=== PATIENT | female | born 1960 | race Caucasian/White ===

== ENCOUNTER 2017-11-20 05:59 | Inpatient (IN) | payer BC ==
[2017-11-20] VITALS (17 sets, daily range): BP systolic 96–179; BP diastolic 57–113; BMI 21.0
[~2017-11-20] VITALS: Ht 167.6 cm; Wt 50.9 kg
--- NOTE | ~2017-11-20 | OP ---
PATIENT NAME: KARLY BETANCOURT MEDICAL RECORD: [id number] :62 LOCATION:D.MS Achary[facility]220[facility]ene ADMISSION DATE:11/20/17 SURGEON: TY ORELLAAN MD DATE OF OPERATION: 11/22/2017 PREOPERATIVE DIAGNOSIS: Aspiration pneumonia. POSTOPERATIVE DIAGNOSIS: Aspiration pneumonia. PROCEDURES: 1. Esophagogastroduodenoscopy with antral biopsies. 2. Percutaneous endoscopic gastrostomy, 20-Uzbek. SURGEON: Ty Orellana MD DIAGNOSTIC SALES SPECIALIST: None. BLOOD LOSS: Minimal. ANESTHESIA: IV sedation per the anesthesia staff with local. COMPLICATIONS: None. The risks, possible complications and alternatives to the procedure were explained. A consent form was signed. OPERATIVE COURSE: The patient was seen in her ICU bed. A bite block was inserted. IV sedation was induced by the anesthesia staff. The abdomen was sterilely prepped and draped. A gastroscope was inserted through the biteblock into the mouth. It was advanced easily into the hypopharynx. The esophagus was easily intubated as were the stomach and duodenum. Upon withdrawal, retroflexed and angulus views were obtained. Antral biopsies were obtained. I then indented the anterior abdominal wall skin. I chose an area for insertion of the gastrostomy tube at the side of the former gastrostomy tube insertion site. This area was infiltrated with a local anesthetic and then a skin incision was accomplished. Through the skin incision, I advanced an Angiocath and punctured the fundus of the stomach on the first try. A guidewire was advanced through the Angiocath. This was grasped with an endoscopic snare and was withdrawn out through the mouth. I then attached it to a pull type gastrostomy tube, which was then pulled into place. Hub and flange devices were attached. I re-endoscoped in the patient's esophagus and stomach. There had been no evidence of false passage or perforation. The endoscope was then withdrawn under direct vision. Sterile dressings were applied. TRANSINT:[id number] Voice Confirmation ID: [id number] DOCUMENT ID: [id number] OPERATIVE REPORT [id number] KARLY BETANCOURT ROBERT MD at 1158 CC: [id number] DICTATION DATE: 11/22/17 1549 TRAFFIC SIGNAL MECHANIC: 11/22/172006 DIS IN 12/01/17 [facility] [address] [place] [place] [address]
--- NOTE | ~2017-11-20 | EC ---
PATIENT:KARLY BETANCOURT DATE OF SERVICE: 11/20/17 SEX: F MEDICAL RECORD: [id number] DATE OF : 62 LOCATION:D.MS Acharya220 AGE OF PATIENT: 57 ADMISSION DATE: 11/20/17 REFERRING PHYSICIAN: INTERPRETING PHYSICIAN: DAWSON ENAMORADO MD ECHOCARDIOGRAM REPORT ECHO CHARGES 4 ECHO COMPLETE Date: 11/20 CLINICAL DIAGNOSIS: CHF ECHOCARDIOGRAPHIC MEASUREMENTS (adult normal given) AC root (d.<3.7cm) 2.9 cm LV Septum d (<1.2 cm> 1.3 cm Valve Excursion 1.1 cm LV Septum (systole) 1.4 cm Left Atria (s.<4.0cm> 3.8 cm LVPW d(<1.2cm) 1.5 cm RV (d.<2.3cm) 3.5 cm LVPW (sytole) 1.7 cm LV diastole(<5.6CM) 4.1 cm MV E-F(>70mm/sec) cm LV systole 2.4 cm LVOT Diameter 1.7 cm MV exc.(>10mm) cm Est.ejection fraction (50-75%) % DOPPLER: LVIT cm/sec A 115 cm/sec E 88.0 cm/sec LA cm/sec RVSP 27 mmHg LVOT 149 cm/sec AOP1/2T m/s Asc. Ao 185 cm/sec RVOT cm/sec RA cm/sec PA cm/sec AV Gradient Peak 13.74mmHg AV Mean 7.77 mmHg AV Area 1.9 cm MV Gradient Peak 3.82 mmHg MV Mean 1.72 mmHg MV Area cm COMMENTS: Escrow Officer: Jana GUERRERO Male Model: 1 Dr. Enamorado TAPE# PACS Pericardial Effusion N DATE OF SERVICE: Echocardiogram FINDINGS: 1. Left ventricular chamber size is within normal limits. Left ventricular systolic function is normal. Overall ejection fraction estimated at 65%. 2. Left atrium, right atrium, and right ventricular chamber sizes are within normal limits. 3. Valvular structures have normal structure and motion. ECHOCARDIOGRAM REPORT [id number] KARLY BETANCOURT 4. Doppler interrogation only reveals mild tricuspid regurgitation, no other valvular insufficiency or stenosis and pulmonary systolic pressure is normal at 27 mmHg. 5. No evidence of pericardial effusion or left ventricular thrombus. TRANSINT:[id number] Voice Confirmation ID: [id number] DOCUMENT ID: [id number] DAWSON ENAMORADO MD at 0956 CC: [id number] DICTATION DATE: 11/21/17 1055 ACCOUNTANT CONTROLLER: 11/21/17 1509 ADM IN [place] [id number] [place] [id number]
--- NOTE | ~2017-11-20 | CN ---
PATIENT NAME:KARLY BETANCOURT MEDICAL RECORD: [id number] : 62 LOCATION:D.MS [place] ADMIT DATE: 11/20/17 ACCOUNT: [id number] CONSULTING PHYSICIAN: HANNAH ORELLANA MD REFERRING PHYSICIAN: KIMBERLY LICONA MD DATE OF CONSULTATION: 11/21/2017 ADDENDUM CHIEF COMPLAINT: Aspiration pneumonia and needed gastrostomy tube. HISTORY OF PRESENT ILLNESS: I was asked to see this patient to place a gastrostomy tube. She has had a G-tube in the past. There is a scar on her abdomen in the left upper quadrant. The patient had an aspiration pneumonia. She has been aspirating and has undergone a swallowing evaluation in the past. Nothing aggravates. Nothing alleviates. The patient is unable to provide me with any history due to her mental status. This is a consultation note addendum. For the typed portion of the consult note, please see the chart. This would include the past medical and surgical history, current medications, allergies, social history as well as family history. REVIEW OF SYSTEMS: Unobtainable from the patient as she is currently nonverbal. PHYSICAL EXAMINATION: GENERAL: The patient appears acutely ill. Also appears chronically ill. VITAL SIGNS: Stable. The entire physical examination was performed in the presence of a female nurse. EARS: External ears appear normal. EYES: Pupils are reactive. NECK: Trachea is midline. CHEST: Intercostal retractions are present. Breathing is labored. PULMONARY: Rhonchi bilaterally. ABDOMEN: Nontender. There is a left upper quadrant scar. PSYCHIATRIC: Unable to evaluate. NEUROLOGIC: Markedly abnormal. BACK: Thoracic kyphosis is present. LYMPHATIC: No lymphangitic streaking of the exposed extremities. IMPRESSION: Aspiration pneumonia. PLAN: EGD with PEG placement. I will hold the Lovenox. TRANSINT:[id number] Voice Confirmation ID: [id number] DOCUMENT ID: [id number] HANNAH ORELLANA MD at 1158 CC: KIMBERLY LICONA MD [id number] DICTATION DATE: 11/21/17 165 SAMPLE GRADER: 11/21/172117 DIS IN 12/01/17 [place] [id number] [place] [address]
--- NOTE | ~2017-11-20 | CN ---
PATIENT NAME:KARLY BETANCOURT MEDICAL RECORD: [id number] : 62 LOCATION:CLAYD.2308 ADMIT DATE: 11/20/17 ACCOUNT: [id number] CONSULTING PHYSICIAN: MELONY MICHELLE MD REFERRING PHYSICIAN: KIMBERLY LICONA MD DATE OF CONSULTATION: 11/22/2017 IDENTIFYING DATA: The patient is a 57-year-old and she is admitted to the hospital secondary to aspiration pneumonia and recent ventilator placement. HISTORY OF PRESENT ILLNESS: In actuality, she has been on a ventilator at [facility] for about a month. She subsequently has had some hypotensive episodes and some confusion. She is now having difficulty swallowing and is in intensive care. While there, she has had some behavior outbursts that are problematic. She has a history of chronic mental illness and stressful as the events of the recent weeks would be for anyone. I am sure they are particularly so for her. She will be having a PEG tube placement as I am dictating this. She is aware of that. She is unable to tell me why she is in the hospital or at least she is processing so slowly and looking about the room. I am not sure if she is forgetting what I have said to her or if she is attending to something not present. She subsequently does answer some orientation questions correctly about the year and the date. I was surprised that she was able to do that. PAST PSYCHIATRIC HISTORY: Regarding her past psychiatric history, I have pretty limited information. She gives me the name of doctor at [facility] who I know she has not worked there for 5 years. When asked if she has seen anyone since then or who is prescribing her medications, she cannot tell me anyone except his name. Unfortunately, she has a lithium level of 2.23 on November the , but no level since then. She is taking a pretty low dose of lithium 300 mg daily and she has normal renal functions. ASSESSMENT: 1. Schizoaffective disorder. 2. Delirium associated with intensive care treatment and chronic and long-term critical illness. PLAN: At this time, I would recommend that the patient have another lithium level checked. I think it is important to check it to make sure that it has declined, which I would expect it has and I would also recommend that the lithium subsequently be discontinued. I would give her 500 mg of Depakote twice daily per her PEG tube with a Depakote level in about 5 days and would shoot for a blood level around 75. That may require a little bit of an increase. In addition to this, I would treat her behavioral outburst with p.r.n. Haldol and we would give her a dose of 2 mg by PEG tube IM or IV every 4 hours as needed for agitation. I would also start her on Trilafon at a dose of 2 mg twice daily per the PEG tube on a course scheduled basis. A low dose of a benzodiazepine may help her to be less anxious and to rest better. Naturally supportive medical and surgical and nursing care are going to be important without same. When she does leave here, she should have follow up with [email or web address] Given her condition, I think it is important that she see a psychiatrist. Again, it may well be that her primary care physician is taken over the prescribing of her psychoactive medicines because of the [place] [facility] of her psychiatrist or some level of stability, but I do think she should be seen again at least a few times by the psychiatrist on an outpatient basis prior to being returned to a primary care setting. CONSULT REPORT [id number] KARLY BETANCOURT Thank you for allowing me to participate in the care of this patient. TRANSINT:[id number] Voice Confirmation ID: [id number] DOCUMENT ID: [id number] MELONY MICHELLE MD at 1325 CC: [id number] DICTATION DATE: 11/22/17 1454 LIBRARY SALES CONSULTANT: 11/22/17 1530 ADM IN [place] [id number] [place] [address]
[2017-11-20 06:53] LABS: BASOPHILS 0.3 % (0-2); EOSINOPHILS 2.8 % (0-7); HEMATOCRIT 31.6 % (36.0-48.0); HEMOGLOBIN 10.4 g/dL (12-16); MCH 30.9 pg (26.0-34.0); MCHC 32.9 g/dL (31.0-37.0); MCV 93.8 fL (80.0-100.0); MEAN PLATELET VOLUME 9.2 fL (7.4-10.4); NEUTROPHILS 77.9 % (40-80); PLATELET COUNT 413 10x3/uL (130-400); RBC 3.37 10x6/uL (4.00-5.40); RDW 14.4 % (11.5-14.5); WBC 19.7 10x3/uL (4.8-10.8)
[2017-11-20 07:06] LABS: INR 1.25 (0.85-1.17); PROTIME 15.2 SECONDS (11.6-15.0)
[2017-11-20 07:08] LABS: APTT 34.7 SECONDS (22.8-39.4); D-DIMER-QUANTITATIVE 2.02 ug/mLFEU (0.20-0.54)
[2017-11-20 07:15] LABS: ALBUMIN 2.6 g/dL (3.4-5.0); ALKALINE PHOSPHATASE 155 U/L (46-116); ALT (SGPT) 20 U/L (10-68); BILIRUBIN - TOTAL 0.35 mg/dL (0.2-1.3); CALC OSMOLALITY 263 mosm/kg (275-300); CALCIUM 8.7 mg/dL (8.5-10.1); CARBON DIOXIDE 25.6 mmol/L (21.0-32.0); CHLORIDE - SERUM 98 mmol/L (98-107); CREATININE - SERUM 0.8 mg/dL (0.6-1.3); GLUCOSE 110 mg/dL (74-106); POTASSIUM - SERUM 3.8 mmol/L (3.5-5.1); PROTEIN - SERUM 7.1 g/dL (6.4-8.2); SODIUM 133 mmol/L (136-145); UREA NITROGEN 5 mg/dL (7-18); eGFR NON AFRICAN AMERICAN 78 mL/min (90-120)
[2017-11-20 07:19] LABS: AMYLASE - SERUM 34 U/L (25-115); CKMB 1.7 U/L (0.0-3.6); CREATINE KINASE 122 UL (21-215); LIPASE 53 U/L (73-393); MAGNESIUM - SERUM 1.6 mg/dL (1.8-2.4); PRO BNP 369 pg/mL (0-125); TROPONIN-I < 0.017 ng/mL (0.000-0.060)
[2017-11-20 07:26] LABS: APPEARANCE HAZY (CLEAR); BILIRUBIN NEGATIVE (NEGATIVE); COLOR YELLOW (YELLOW); GLUCOSE NEGATIVE (NEGATIVE); KETONE NEGATIVE (NEGATIVE); NITRITE NEGATIVE (NEGATIVE); PROTEIN TRACE mg/dL (NEGATIVE); SPECIFIC GRAVITY 1.005 (1.005-1.020); UROBILINOGEN NORMAL (NORMAL)
[2017-11-20 07:27] LABS: BACTERIA MANY /hpf (NONE SEEN); EPITHELIAL CELLS 0-5 /hpf (0-5); RED CELLS - URINE 0-5 /hpf (0-5)
[2017-11-20 07:29] LABS: UDS - AMPHET NEGATIVE QUAL (NEGATIVE); UDS - BARB NEGATIVE QUAL (NEGATIVE); UDS - BENZO POSITIVE QUAL (NEGATIVE); UDS - COCAINE NEGATIVE QUAL (NEGATIVE); UDS - OPIATE POSITIVE QUAL (NEGATIVE); UDS - PCP NEGATIVE QUAL (NEGATIVE); UDS - THC NEGATIVE QUAL (NEGATIVE)
[2017-11-20 11:06] LABS: LITHIUM 2.23 mmol/L (0.60-1.20)
[2017-11-20 11:29] LABS: FERRITIN 257 ng/mL (3-244); PRO BNP 426 pg/mL (0-125)
[2017-11-21] VITALS (25 sets, daily range): BP systolic 102–161; BP diastolic 40–99
[2017-11-21 05:36] LABS: HEMATOCRIT 31.2 % (36.0-48.0); HEMOGLOBIN 10.1 g/dL (12-16); MCH 30.6 pg (26.0-34.0); MCHC 32.4 g/dL (31.0-37.0); MCV 94.5 fL (80.0-100.0); MEAN PLATELET VOLUME 9.2 fL (7.4-10.4); PLATELET COUNT 457 10x3/uL (130-400); WBC 32.1 10x3/uL (4.8-10.8)
[2017-11-21 05:45] LABS: CALC OSMOLALITY 282 mosm/kg (275-300); CALCIUM 8.4 mg/dL (8.5-10.1); CARBON DIOXIDE 24.3 mmol/L (21.0-32.0); CHLORIDE - SERUM 107 mmol/L (98-107); CREATININE - SERUM 0.7 mg/dL (0.6-1.3); GLUCOSE 138 mg/dL (74-106); POTASSIUM - SERUM 3.7 mmol/L (3.5-5.1); SODIUM 142 mmol/L (136-145); UREA NITROGEN 6 mg/dL (7-18); eGFR NON AFRICAN AMERICAN > 90 mL/min (90-120)
[2017-11-21 05:58] LABS: LYMPHOCYTES 4 % (15-50); MONOCYTES 2 % (2-11); NEUTROPHILS 88 % (40-80); PLATELET ESTIMATE INCREASED
[2017-11-21] MEDS ORDERED: HYDROCODON-ACE1 EAC7 PO (17:06)
[2017-11-21] MEDS ORDERED: ORAP2 MG PO (17:09)
[2017-11-21] MEDS ORDERED: TOPROL XL50 MG PO (17:09)
[2017-11-21] MEDS ORDERED: NEURONTIN 300300 MG PO (17:10)
[2017-11-21] MEDS ORDERED: NAMENDA10 MG PO (17:11)
[2017-11-21] MEDS ORDERED: THORAZINE50 MG PO (17:12)
[2017-11-21] MEDS ORDERED: BENTYL 20 MG TA20 MG PO (17:13)
[2017-11-21] MEDS ORDERED: PROTONIX40 MG PO (17:14)
[2017-11-21] MEDS ORDERED: LITHOBID 300 M300 MG PO (17:14)
[2017-11-21] MEDS ORDERED: XANAX1 MG PO (17:15)
[2017-11-22] VITALS (25 sets, daily range): BP systolic 106–190; BP diastolic 56–99; Ht 167.6 cm; Wt 50.9 kg
[2017-11-22 03:53] LABS: BASOPHILS 0.1 % (0-2); EOSINOPHILS 0.5 % (0-7); HEMATOCRIT 27.7 % (36.0-48.0); HEMOGLOBIN 8.8 g/dL (12-16); IMMATURE GRANULOCYTES 1.6 % (0-5); LYMPHOCYTES 4.4 % (15-50); MCH 30.6 pg (26.0-34.0); MCHC 31.8 g/dL (31.0-37.0); MCV 96.2 fL (80.0-100.0); MEAN PLATELET VOLUME 9.2 fL (7.4-10.4); MONOCYTES 4.1 % (2-11); NEUTROPHILS 89.3 % (40-80); PLATELET COUNT 380 10x3/uL (130-400); RBC 2.88 10x6/uL (4.00-5.40); RDW 15.4 % (11.5-14.5); WBC 27.7 10x3/uL (4.8-10.8)
[2017-11-22 04:02] LABS: CALC OSMOLALITY 287 mosm/kg (275-300); CALCIUM 8.2 mg/dL (8.5-10.1); CARBON DIOXIDE 24.5 mmol/L (21.0-32.0); CHLORIDE - SERUM 111 mmol/L (98-107); CREATININE - SERUM 0.6 mg/dL (0.6-1.3); GLUCOSE 118 mg/dL (74-106); PHOSPHOROUS 2.1 mg/dL (2.5-4.9); POTASSIUM - SERUM 3.5 mmol/L (3.5-5.1); PRE-ALBUMIN 7.3 mg/dL (18.0-35.7); SODIUM 145 mmol/L (136-145); UREA NITROGEN 7 mg/dL (7-18); eGFR NON AFRICAN AMERICAN > 90 mL/min (90-120)
[2017-11-22 04:05] LABS: ALBUMIN 1.9 g/dL (3.4-5.0)
[2017-11-22 14:17] LABS: FOLATE (FOLIC ACID) - SERUM >20.0 ng/mL (>3.0)
[2017-11-23] VITALS (23 sets, daily range): BP systolic 93–184; BP diastolic 54–99
[2017-11-23 05:19] LABS: BASOPHILS 0.2 % (0-2); EOSINOPHILS 0.6 % (0-7); HEMATOCRIT 29.3 % (36.0-48.0); HEMOGLOBIN 9.4 g/dL (12-16); IMMATURE GRANULOCYTES 2.5 % (0-5); LYMPHOCYTES 9.1 % (15-50); MCHC 32.1 g/dL (31.0-37.0); MCV 96.7 fL (80.0-100.0); MEAN PLATELET VOLUME 9.2 fL (7.4-10.4); MONOCYTES 6.2 % (2-11); NEUTROPHILS 81.4 % (40-80); RBC 3.03 10x6/uL (4.00-5.40); RDW 15.5 % (11.5-14.5)
[2017-11-23 05:21] LABS: PLATELET COUNT 486 10x3/uL (130-400); WBC 17.7 10x3/uL (4.8-10.8)
[2017-11-23 05:34] LABS: AMYLASE - SERUM 42 U/L (25-115); CALCIUM 8.3 mg/dL (8.5-10.1); CARBON DIOXIDE 25.2 mmol/L (21.0-32.0); CHLORIDE - SERUM 112 mmol/L (98-107); CREATININE - SERUM 0.6 mg/dL (0.6-1.3); GLUCOSE 106 mg/dL (74-106); LIPASE 270 U/L (73-393); MAGNESIUM - SERUM 1.7 mg/dL (1.8-2.4); PRO BNP 2671 pg/mL (0-125); SODIUM 144 mmol/L (136-145); THYROID STIMULATING HORMONE 0.46 uIU/mL (0.36-3.74); eGFR NON AFRICAN AMERICAN > 90 mL/min (90-120)
[2017-11-23 05:37] LABS: CALC OSMOLALITY 285 mosm/kg (275-300); POTASSIUM - SERUM 2.9 mmol/L (3.5-5.1); UREA NITROGEN 10 mg/dL (7-18)
[2017-11-24] VITALS (18 sets, daily range): BP systolic 117–172; BP diastolic 68–119
[2017-11-24 05:53] LABS: BASOPHILS 0.5 % (0-2); EOSINOPHILS 2.1 % (0-7); HEMATOCRIT 29.6 % (36.0-48.0); HEMOGLOBIN 9.4 g/dL (12-16); IMMATURE GRANULOCYTES 3.4 % (0-5); LYMPHOCYTES 11.1 % (15-50); MCH 30.2 pg (26.0-34.0); MCHC 31.8 g/dL (31.0-37.0); MCV 95.2 fL (80.0-100.0); MEAN PLATELET VOLUME 9.2 fL (7.4-10.4); MONOCYTES 6.9 % (2-11); PLATELET COUNT 514 10x3/uL (130-400); RBC 3.11 10x6/uL (4.00-5.40); RDW 15.5 % (11.5-14.5)
[2017-11-24 06:02] LABS: WBC 13.2 10x3/uL (4.8-10.8)
[2017-11-24 06:17] LABS: ALBUMIN 1.8 g/dL (3.4-5.0); ALKALINE PHOSPHATASE 111 U/L (46-116); ALT (SGPT) 17 U/L (10-68); CALC OSMOLALITY 288 mosm/kg (275-300); CARBON DIOXIDE 28.2 mmol/L (21.0-32.0); CHLORIDE - SERUM 109 mmol/L (98-107); CREATININE - SERUM 0.6 mg/dL (0.6-1.3); GLUCOSE 121 mg/dL (74-106); MAGNESIUM - SERUM 1.9 mg/dL (1.8-2.4); PHOSPHOROUS 2.6 mg/dL (2.5-4.9); PROTEIN - SERUM 6.2 g/dL (6.4-8.2); SODIUM 145 mmol/L (136-145); UREA NITROGEN 9 mg/dL (7-18); eGFR NON AFRICAN AMERICAN > 90 mL/min (90-120)
[2017-11-24 06:18] LABS: POTASSIUM - SERUM 2.6 mmol/L (3.5-5.1)
[2017-11-25] VITALS: BP 136/84
[2017-11-25 04:00] VITALS: BP 122/81
[2017-11-25 06:58] LABS: BASOPHILS 0.3 % (0-2); EOSINOPHILS 2.3 % (0-7); HEMOGLOBIN 9.6 g/dL (12-16); IMMATURE GRANULOCYTES 4.6 % (0-5); LYMPHOCYTES 11.1 % (15-50); MCV 93.8 fL (80.0-100.0); MEAN PLATELET VOLUME 8.8 fL (7.4-10.4); NEUTROPHILS 71.7 % (40-80); PLATELET COUNT 553 10x3/uL (130-400); RDW 15.1 % (11.5-14.5); WBC 11.8 10x3/uL (4.8-10.8)
[2017-11-25 07:14] LABS: CALCIUM 7.8 mg/dL (8.5-10.1); CARBON DIOXIDE 29.7 mmol/L (21.0-32.0); CHLORIDE - SERUM 103 mmol/L (98-107); CREATININE - SERUM 0.5 mg/dL (0.6-1.3); GLUCOSE 112 mg/dL (74-106); SODIUM 142 mmol/L (136-145); eGFR NON AFRICAN AMERICAN > 90 mL/min (90-120)
[2017-11-25 07:15] LABS: CALC OSMOLALITY 281 mosm/kg (275-300); UREA NITROGEN 6 mg/dL (7-18)
[2017-11-25 07:16] LABS: POTASSIUM - SERUM 2.7 mmol/L (3.5-5.1)
[2017-11-25 08:04] VITALS: BP 130/82
[2017-11-25 10:00] LABS: PHOSPHOROUS 2.9 mg/dL (2.5-4.9)
[2017-11-25 12:19] VITALS: BP 141/88
[2017-11-25 20:00] VITALS: BP 172/89
[2017-11-26 00:01] VITALS: BP 120/77
[2017-11-26 04:00] VITALS: BP 147/74
[2017-11-26 04:36] LABS: BASOPHILS 0.3 % (0-2); EOSINOPHILS 3.7 % (0-7); HEMATOCRIT 28.4 % (36.0-48.0); HEMOGLOBIN 9.2 g/dL (12-16); IMMATURE GRANULOCYTES 5.7 % (0-5); LYMPHOCYTES 14.4 % (15-50); MCH 30.4 pg (26.0-34.0); MCHC 32.4 g/dL (31.0-37.0); MCV 93.7 fL (80.0-100.0); MONOCYTES 8.3 % (2-11); NEUTROPHILS 67.6 % (40-80); PLATELET COUNT 573 10x3/uL (130-400); RBC 3.03 10x6/uL (4.00-5.40); RDW 15.2 % (11.5-14.5); WBC 10.3 10x3/uL (4.8-10.8)
[2017-11-26 05:07] LABS: CALC OSMOLALITY 279 mosm/kg (275-300); CALCIUM 8.3 mg/dL (8.5-10.1); CARBON DIOXIDE 27.6 mmol/L (21.0-32.0); CHLORIDE - SERUM 105 mmol/L (98-107); CREATININE - SERUM 0.6 mg/dL (0.6-1.3); GLUCOSE 122 mg/dL (74-106); PHOSPHOROUS 3.2 mg/dL (2.5-4.9); POTASSIUM - SERUM 3.3 mmol/L (3.5-5.1); PRO BNP 2003 pg/mL (0-125); SODIUM 141 mmol/L (136-145); UREA NITROGEN 7 mg/dL (7-18); eGFR NON AFRICAN AMERICAN > 90 mL/min (90-120)
[2017-11-26 07:47] VITALS: BP 143/93
[2017-11-26 12:23] VITALS: BP 159/97
[2017-11-26 15:55] VITALS: BP 122/84
[2017-11-26 19:53] VITALS: BP 156/90
[2017-11-27] VITALS: BP 134/85
[2017-11-27 04:00] VITALS: BP 134/85
[2017-11-27 06:35] LABS: BASOPHILS 0.4 % (0-2); EOSINOPHILS 4.3 % (0-7); HEMATOCRIT 29.6 % (36.0-48.0); HEMOGLOBIN 9.5 g/dL (12-16); IMMATURE GRANULOCYTES 6.2 % (0-5); MCH 30.3 pg (26.0-34.0); MCHC 32.1 g/dL (31.0-37.0); MCV 94.3 fL (80.0-100.0); MONOCYTES 7.7 % (2-11); NEUTROPHILS 67.4 % (40-80); PLATELET COUNT 684 10x3/uL (130-400); RBC 3.14 10x6/uL (4.00-5.40); RDW 15.8 % (11.5-14.5); WBC 10.5 10x3/uL (4.8-10.8)
[2017-11-27 06:55] LABS: ALKALINE PHOSPHATASE 96 U/L (46-116); ALT (SGPT) 19 U/L (10-68); BILIRUBIN - TOTAL 0.17 mg/dL (0.2-1.3); CALC OSMOLALITY 274 mosm/kg (275-300); CALCIUM 8.1 mg/dL (8.5-10.1); CARBON DIOXIDE 26.5 mmol/L (21.0-32.0); CHLORIDE - SERUM 103 mmol/L (98-107); CREATININE - SERUM 0.5 mg/dL (0.6-1.3); GLUCOSE 112 mg/dL (74-106); PROTEIN - SERUM 6.6 g/dL (6.4-8.2); SODIUM 138 mmol/L (136-145); UREA NITROGEN 7 mg/dL (7-18); eGFR NON AFRICAN AMERICAN > 90 mL/min (90-120)
[2017-11-27 06:57] LABS: POTASSIUM - SERUM 3.5 mmol/L (3.5-5.1)
[2017-11-27 08:17] VITALS: BP 154/97
[2017-11-27 20:00] VITALS: BP 117/63
[2017-11-28] VITALS: BP 126/68
[2017-11-28 04:00] VITALS: BP 131/66
[2017-11-28 06:59] LABS: BASOPHILS 0.5 % (0-2); EOSINOPHILS 3.8 % (0-7); HEMATOCRIT 30.2 % (36.0-48.0); HEMOGLOBIN 9.7 g/dL (12-16); IMMATURE GRANULOCYTES 3.8 % (0-5); LYMPHOCYTES 15.7 % (15-50); MCH 30.4 pg (26.0-34.0); MCHC 32.1 g/dL (31.0-37.0); MCV 94.7 fL (80.0-100.0); MEAN PLATELET VOLUME 8.6 fL (7.4-10.4); MONOCYTES 7.9 % (2-11); NEUTROPHILS 68.3 % (40-80); PLATELET COUNT 725 10x3/uL (130-400); RBC 3.19 10x6/uL (4.00-5.40); RDW 16.4 % (11.5-14.5); WBC 8.2 10x3/uL (4.8-10.8)
[2017-11-28 07:35] LABS: ALBUMIN 2.1 g/dL (3.4-5.0); ALKALINE PHOSPHATASE 87 U/L (46-116); ALT (SGPT) 19 U/L (10-68); BILIRUBIN - TOTAL 0.14 mg/dL (0.2-1.3); CALC OSMOLALITY 276 mosm/kg (275-300); CALCIUM 8.3 mg/dL (8.5-10.1); CHLORIDE - SERUM 105 mmol/L (98-107); CREATININE - SERUM 0.5 mg/dL (0.6-1.3); GLUCOSE 101 mg/dL (74-106); POTASSIUM - SERUM 3.8 mmol/L (3.5-5.1); PROTEIN - SERUM 6.6 g/dL (6.4-8.2); SODIUM 139 mmol/L (136-145); eGFR NON AFRICAN AMERICAN > 90 mL/min (90-120)
[2017-11-28 07:39] LABS: UREA NITROGEN 10 mg/dL (7-18)
[2017-11-28 09:07] VITALS: BP 144/87
[2017-11-28 20:00] VITALS: BP 131/84
[2017-11-29] VITALS: BP 111/61
[2017-11-29 04:00] VITALS: BP 122/71
[2017-11-29 05:07] LABS: BASOPHILS 0.2 % (0-2); EOSINOPHILS 2.1 % (0-7); HEMATOCRIT 31.8 % (36.0-48.0); HEMOGLOBIN 10.2 g/dL (12-16); IMMATURE GRANULOCYTES 2.1 % (0-5); LYMPHOCYTES 12.2 % (15-50); MCH 30.7 pg (26.0-34.0); MCHC 32.1 g/dL (31.0-37.0); MCV 95.8 fL (80.0-100.0); MEAN PLATELET VOLUME 8.8 fL (7.4-10.4); MONOCYTES 6.6 % (2-11); NEUTROPHILS 76.8 % (40-80); PLATELET COUNT 796 10x3/uL (130-400); RBC 3.32 10x6/uL (4.00-5.40); RDW 16.8 % (11.5-14.5)
[2017-11-29 05:17] LABS: WBC 15.9 10x3/uL (4.8-10.8)
[2017-11-29 06:12] LABS: ALBUMIN 2.3 g/dL (3.4-5.0); ALKALINE PHOSPHATASE 97 U/L (46-116); ALT (SGPT) 21 U/L (10-68); BILIRUBIN - TOTAL 0.18 mg/dL (0.2-1.3); CALC OSMOLALITY 274 mosm/kg (275-300); CALCIUM 8.6 mg/dL (8.5-10.1); CARBON DIOXIDE 27.1 mmol/L (21.0-32.0); CHLORIDE - SERUM 102 mmol/L (98-107); CREATININE - SERUM 0.5 mg/dL (0.6-1.3); GLUCOSE 105 mg/dL (74-106); POTASSIUM - SERUM 4.1 mmol/L (3.5-5.1); SODIUM 138 mmol/L (136-145); UREA NITROGEN 10 mg/dL (7-18); VALPROIC ACID (DEPAKOTE) 29.9 ug/mL (50.0-100.0); eGFR NON AFRICAN AMERICAN > 90 mL/min (90-120)
[2017-11-29 08:21] VITALS: BP 135/79
[2017-11-29 15:32] VITALS: BP 130/68
[2017-11-29 22:20] VITALS: BP 152/91
[2017-11-30 01:22] VITALS: BP 119/69
[2017-11-30 04:45] VITALS: BP 148/58
[2017-11-30 08:34] LABS: BASOPHILS 0.3 % (0-2); EOSINOPHILS 3.8 % (0-7); HEMOGLOBIN 10.2 g/dL (12-16); IMMATURE GRANULOCYTES 2.4 % (0-5); LYMPHOCYTES 16.7 % (15-50); MCH 30.7 pg (26.0-34.0); MCHC 31.9 g/dL (31.0-37.0); MCV 96.4 fL (80.0-100.0); MEAN PLATELET VOLUME 8.7 fL (7.4-10.4); MONOCYTES 7.8 % (2-11); PLATELET COUNT 799 10x3/uL (130-400); RBC 3.32 10x6/uL (4.00-5.40); RDW 17.3 % (11.5-14.5); WBC 10.2 10x3/uL (4.8-10.8)
[2017-11-30 09:03] LABS: ALBUMIN 2.3 g/dL (3.4-5.0); ALKALINE PHOSPHATASE 95 U/L (46-116); ALT (SGPT) 21 U/L (10-68); BILIRUBIN - TOTAL 0.18 mg/dL (0.2-1.3); CALC OSMOLALITY 280 mosm/kg (275-300); CALCIUM 8.9 mg/dL (8.5-10.1); CARBON DIOXIDE 26.8 mmol/L (21.0-32.0); CHLORIDE - SERUM 103 mmol/L (98-107); CREATININE - SERUM 0.5 mg/dL (0.6-1.3); GLUCOSE 115 mg/dL (74-106); POTASSIUM - SERUM 4.1 mmol/L (3.5-5.1); PROTEIN - SERUM 6.4 g/dL (6.4-8.2); SODIUM 141 mmol/L (136-145); UREA NITROGEN 10 mg/dL (7-18); eGFR NON AFRICAN AMERICAN > 90 mL/min (90-120)
[2017-11-30 10:38] VITALS: BP 144/72
[2017-11-30 15:04] VITALS: BP 97/51
[2017-11-30 20:24] VITALS: BP 139/74
[2017-12-01 05:05] VITALS: BP 89/45
[2017-12-01 06:19] LABS: BASOPHILS 0.3 % (0-2); HEMATOCRIT 31.7 % (36.0-48.0); HEMOGLOBIN 10.1 g/dL (12-16); IMMATURE GRANULOCYTES 1.9 % (0-5); LYMPHOCYTES 13.9 % (15-50); MCHC 31.9 g/dL (31.0-37.0); MCV 97.2 fL (80.0-100.0); MEAN PLATELET VOLUME 8.7 fL (7.4-10.4); MONOCYTES 7.5 % (2-11); NEUTROPHILS 73.4 % (40-80); PLATELET COUNT 792 10x3/uL (130-400); RBC 3.26 10x6/uL (4.00-5.40); RDW 17.6 % (11.5-14.5); WBC 9.8 10x3/uL (4.8-10.8)
[2017-12-01 06:52] LABS: ALBUMIN 2.1 g/dL (3.4-5.0); ALKALINE PHOSPHATASE 88 U/L (46-116); ALT (SGPT) 17 U/L (10-68); BILIRUBIN - TOTAL 0.14 mg/dL (0.2-1.3); CALCIUM 8.6 mg/dL (8.5-10.1); CARBON DIOXIDE 28.2 mmol/L (21.0-32.0); CREATININE - SERUM 0.6 mg/dL (0.6-1.3); GLUCOSE 108 mg/dL (74-106); PROTEIN - SERUM 6.4 g/dL (6.4-8.2); UREA NITROGEN 12 mg/dL (7-18); eGFR NON AFRICAN AMERICAN > 90 mL/min (90-120)
[2017-12-01 07:37] LABS: CALC OSMOLALITY 281 mosm/kg (275-300); CHLORIDE - SERUM 104 mmol/L (98-107); POTASSIUM - SERUM 3.8 mmol/L (3.5-5.1); SODIUM 141 mmol/L (136-145)
[2017-12-01 08:15] VITALS: BP 87/45
[2017-12-01] MEDS ORDERED: LOPRESSOR25 MG PT (11:19)
[2017-12-01 12:26] VITALS: BP 107/59
== END 2017-12-01 13:44 | DRG 871 ==
LOC: D.ER 05:59 → D.EDHOLD 07:37 → D.ICU 07:37 → D.EDHOLD 11:07 → D.MS 11:35 → D.ICU 16:10 → D.SDCHOLD 11-22 12:29 → D.ICU 11-22 12:38 → D.MS 11-24 18:35
PROVIDERS: Family Medicine; Internal Medicine Nephrology; Internal Medicine Pulmonary Disease; Surgery
PROC: 5A09357 Assistance with Respiratory Ventilation, Less than 24 Consecutive Hours, Continuous Positive Airway Pressure (ICD-10-PCS; 2017-11-20)
PROC: 0DH63UZ Insertion of Feeding Device into Stomach, Percutaneous Approach (ICD-10-PCS; principal; 2017-11-21)
PROC: 0DB78ZX Excision of Stomach, Pylorus, Via Natural or Artificial Opening Endoscopic, Diagnostic (ICD-10-PCS; 2017-11-21)
DX: A41.9 Sepsis, unspecified organism (principal); R65.21 Severe sepsis with septic shock; J69.0 Pneumonitis due to inhalation of food and vomit; G93.41 Metabolic encephalopathy; J96.01 Acute respiratory failure with hypoxia; N39.0 Urinary tract infection, site not specified; E46 Unspecified protein-calorie malnutrition; E87.1 Hypo-osmolality and hyponatremia; J90 Pleural effusion, not elsewhere classified; F25.9 Schizoaffective disorder, unspecified; D50.9 Iron deficiency anemia, unspecified; T43.595A Adverse effect of other antipsychotics and neuroleptics, initial encounter; I95.9 Hypotension, unspecified; I48.91 Unspecified atrial fibrillation; E83.42 Hypomagnesemia; E83.39 Other disorders of phosphorus metabolism